=== PATIENT | male | born 1965 | race Caucasian/White ===

== ENCOUNTER 2020-02-24 17:28 | Emergency (ER) | payer OTHER ==
[~2020-02-24] VITALS: Ht 180.3 cm; Wt 93.6 kg
[2020-02-24] MEDS ORDERED: ADDERALL20 MG PO (17:52)
[2020-02-24] MEDS ORDERED: CEPHALEXIN500 M1 PO (18:32)
[2020-02-24 19:07] VITALS: BP 146/78; PULSE 76; TEMP 98
== END 2020-02-24 19:10 | disposition home or self-care (01) ==
LOC: COL.ER 17:28
DX: S91.011A Laceration without foreign body, right ankle, initial encounter (principal); Z23 Encounter for immunization; W22.8XXA Striking against or struck by other objects, initial encounter; Y92.89 Other specified places as the place of occurrence of the external cause

== ENCOUNTER 2021-09-18 10:09 | Emergency (ER) | payer OTHER, MEDICARE ==
[~2021-09-18] VITALS: Ht 180.3 cm; Wt 102.3 kg
[~2021-09-18 10:09] MED LIST: ADDERALL20 MG PO; CEPHALEXIN500 M1 PO
[2021-09-18 10:20] VITALS: TEMP 97.9
[2021-09-18] MEDS ORDERED: FLEXERIL 1010 MG/TAB PO ×2 (11:43)
[2021-09-18] MEDS ORDERED: ZOFRAN ODT4 MG PO ×2 (11:43)
[2021-09-18 11:49] VITALS: BP 144/99; PULSE 76
== END 2021-09-18 11:49 | disposition home or self-care (01) ==
LOC: COL.ER 10:09
DX: S06.0X9A Concussion with loss of consciousness of unspecified duration, initial encounter (principal); I10 Essential (primary) hypertension; V49.40XA Driver injured in collision with unspecified motor vehicles in traffic accident, initial encounter

== ENCOUNTER 2023-06-16 14:35 | Emergency (ER) | payer MEDICARE, OTHER ==
[~2023-06-16] VITALS: Ht 180.3 cm; Wt 100.0 kg
[~2023-06-16 14:35] MED LIST changes: +FLEXERIL 1010 MG/TAB PO; +ZOFRAN ODT4 MG PO
[2023-06-16 14:44] VITALS: TEMP 98.1
[2023-06-16 16:00] LABS: COLLECTION METHOD CLEAN CATCH
[2023-06-16 16:06] LABS: BASO # 0.1 K/mm3 (0.0-0.2); EOS # 0.1 K/mm3 (0.0-0.7); EOS % 1.6 % (0.0-4.0); GRAN # 4.1 K/mm3 (1.4-6.5); HEMATOCRIT 44.2 % (42.0-52.0); HEMOGLOBIN 14.5 g/dl (13.5-18.0); LYMPH # 1.9 K/mm3 (1.2-3.4); LYMPH % 27.9 % (20.0-51.0); MEAN CELL VOLUME 84 fl (80.0-100.0); MEAN CORPUSCULAR HEMOGLOBIN 28 pg (27-31); MEAN CORPUSCULAR HGB CONC 33 g/dl (33.0-37.0); MEAN PLATELET VOLUME 10.2 fl (7.4-10.4); MONO # 0.6 K/mm3 (0.1-0.6); MONO % 8.2 % (1.7-9.3); PLATELET COUNT 334 K/mm3 (130-400); RED BLOOD COUNT 5.28 M/mm3 (4.20-5.60); REDCELL DISTRIBUTION WIDTH-CV 13.9 % (11.5-14.5)
[2023-06-16 16:07] LABS: INR 1.2 (0.8-3.0); PROTHROMBIN TIME 12.6 SECONDS (9.7-12.8)
[2023-06-16 16:16] LABS: TRICYCLIC ANTIDEPRESS URINE NEGATIVE
[2023-06-16 16:17] LABS: ALANINE AMINOTRANSFERASE 32 U/L (0-55); ALBUMIN 4.1 gm/dL (3.4-4.8); ALKALINE PHOSPHATASE 71 U/L (40-150); ANION GAP 13 mmol/L (7-16); AST,SGOT 21 U/L (5-34); BILIRUBIN,TOTAL 0.5 mg/dL (0.2-1.2); BLOOD UREA NITROGEN 13 mg/dL (8-26); CALCIUM 9.4 mg/dL (8.4-10.2); CARBON DIOXIDE 22 mmol/L (23-31); CHLORIDE 106 mmol/L (98-107); GLUCOSE 99 mg/dL (70-99); LIPASE 15 U/L (8-78); POTASSIUM 3.8 mmol/L (3.5-4.5); SODIUM 141 mmol/L (136-145); TOTAL PROTEIN 7.4 gm/dL (6.2-8.1)
[2023-06-16 16:28] LABS: PH 5.5 (5.0-8.5); URINE APPEARANCE Clear (CLEAR/HAZY); URINE BLOOD Negative (NEGATIVE); URINE COLOR Yellow (YELLOW); URINE GLUCOSE Negative (NEGATIVE); URINE KETONE Negative (NEGATIVE); URINE NITRATE Negative (NEGATIVE); URINE PROTEIN(semi-quant) Negative (NEGATIVE); URINE UROBILINOGEN 0.2 E.U/dL (0.2-1.0)
[2023-06-16 16:39] LABS: TROPONIN-I < 0.010 ng/mL (0.00-0.033)
[2023-06-16 18:21] VITALS: BP 138/104; PULSE 71
== END 2023-06-16 18:23 | disposition home or self-care (01) ==
LOC: COL.ER 14:35
PROVIDERS: Family Medicine
DX: F41.9 Anxiety disorder, unspecified (principal); F32.A Depression, unspecified